=== PATIENT | male | born 1975 | race American Indian/Alaskan Native ===

== ENCOUNTER 2016-09-11 05:01 | Emergency (ER) | payer OTHER ==
[2016-09-11] MEDS ORDERED: TORADOL ONE (05:21)
[2016-09-11] MEDS ORDERED: NACL 0.9% 1000 ML 1,000 ML ONE (05:23)
[2016-09-11] MEDS ORDERED: MORPHINE ONE (05:32)
[2016-09-11] MEDS ORDERED: MORPHINE IV ONE (07:18)
[2016-09-11] MEDS ORDERED: ZOFRAN IV ONE (07:18)
[2016-09-11] MEDS ORDERED: NACL 0.9% 1000 ML 1,000 ML IV ONE (07:18)
--- NOTE | 2016-09-11 09:37 | Cat Scan Report ---
CT of the abdomen and pelvis with IV and oral contrast. History: Left lower quadrant pain. Findings: There is a subcentimeter round hypodensity in the posterior right lobe of the liver which is otherwise normal. The spleen, pancreas, and gallbladder are normal. The adrenal glands are unremarkable. There is a 1 cm cyst in the midpole of the left kidney; otherwise there are no renal masses or hydronephrosis. No adenopathy is seen within the retroperitoneum. There are no pelvic masses or abnormal fluid collections. There are no mesenteric inflammatory changes. There is no radiographic evidence of appendicitis. Impression: Unremarkable study except for small hepatic and left renal cyst.
--- NOTE | 2016-09-11 10:21 | Emergency Department Report ---
ED Abdominal Pain HPI - General Chief Complaint: Abdominal Pain Time Seen by Provider: 09/11/16 07:15 Source: patient - History of Present Illness MD Complaint: abdominal pain -: Gradual Location: periumbilical, LLQ Radiation: none Migration to: no migration Severity: mild, moderate Quality: aching Consistency: intermittent Improves With: nothing Worsens With: nothing Context: other (ETOH daily) Associated Symptoms: denies other symptoms - Related Data Previous Rx's Medication Instructions Recorded Last Taken Type Lansoprazole [Prevacid] 15 mg PO BID #30 cap 09/11/16 Unknown Rx traMADol [Ultram] 50 mg PO Q4HR PRN #14 tablet 09/11/16 Unknown Rx Allergies Allergy/AdvReac Type Severity Reaction Status Date / Time No Known Allergies Allergy Unverified 09/11/16 08:26 ED Review of Systems ROS: Stated complaint: Other details as noted in HPI Constitutional: denies: chills, fever Eyes: denies: eye pain, eye discharge, vision change ENT: denies: ear pain, throat pain Respiratory: denies: cough, shortness of breath, wheezing Cardiovascular: denies: chest pain, palpitations Endocrine: no symptoms reported Gastrointestinal: abdominal pain. denies: nausea, vomiting, diarrhea Genitourinary: denies: urgency, dysuria Musculoskeletal: denies: back pain, joint swelling, arthralgia Skin: denies: rash, lesions Neurological: denies: headache, weakness, paresthesias Psychiatric: denies: anxiety, depression Hematological/Lymphatic: denies: easy bleeding, easy bruising ED Past Medical Hx - Past Medical History Previous Medical History?: No - Surgical History Past Surgical History?: No - Social History Smoking Status: Current Every Day Smoker Substance Use Type: Marijuana - Medications Home Medications: Home Medications Medication Instructions Recorded Confirmed Last Taken Type Lansoprazole [Prevacid] 15 mg PO BID #30 cap 09/11/16 Unknown Rx traMADol [Ultram] 50 mg PO Q4HR PRN #14 tablet 09/11/16 Unknown Rx ED Physical Exam - General General appearance: alert, in no apparent distress - Head Head exam: Present: atraumatic, normocephalic - Eye Eye exam: Present: normal appearance. Absent: scleral icterus - ENT ENT exam: Present: normal exam, mucous membranes moist - Neck Neck exam: Present: normal inspection - Respiratory Respiratory exam: Present: normal lung sounds bilaterally. Absent: respiratory distress - Cardiovascular Cardiovascular Exam: Present: regular rate, normal rhythm. Absent: systolic murmur, diastolic murmur, rubs, gallop - GI/Abdominal GI/Abdominal exam: Present: soft, normal bowel sounds. Absent: distended, tenderness, guarding, rebound, rigid - Rectal Rectal exam: Present: deferred - Extremities Exam Extremities exam: Present: normal inspection - Back Exam Back exam: Present: normal inspection - Neurological Exam Neurological exam: Present: alert, oriented X3, CN II-XII intact. Absent: motor sensory deficit - Psychiatric Psychiatric exam: Present: normal affect, normal mood - Skin Skin exam: Present: warm, dry, intact, normal color. Absent: rash ED Course Vital Signs 09/11/16 09/11/16 09/11/16 07:30 07:46 08:28 Pulse Rate 84 Respiratory 16 16 16 Rate Blood Pressure 107/62 [Right] O2 Sat by Pulse 98 98 Oximetry - Reevaluation(s) Reevaluation #1: Patient reexamination was resting comfortably. His abdomen is benign. His vital signs are stable. He is appropriate for outpatient management. He presently thinks that his presentation is due to excessive alcohol. We discussed the possibility of pancreatitis and the importance of refraining from alcohol. He is given return criteria. He is discharged in stable condition. 09/11/16 10:44 ED Medical Decision Making - Lab Data Lipase was mildly elevated. Other labs nonsignificant. Critical care attestation.: If time is entered above; I have spent that time in minutes in the direct care of this critically ill patient, excluding procedure time. ED Disposition Clinical Impression: Pancreatitis Qualifiers: Chronicity: acute Pancreatitis type: alcohol induced Acute pancreatitis complication: unspecified Qualified Code(s): K85.20 - Alcohol induced acute pancreatitis without necrosis or infection Disposition: DISCHARGED TO HOME OR SELFCARE Is pt being admited?: No Does the pt Need Aspirin: No Condition: Stable Instructions: Pancreatitis (ED) Additional Instructions: Alcohol abstinence is recommended. Consult with GI doctor. I've given you referrals to a GI group as well as primary care provider. Rx as directed. Return any significant vomiting pain or acute change. Prescriptions: Lansoprazole [Prevacid] 15 mg PO BID #30 cap traMADol [Ultram] 50 mg PO Q4HR PRN #14 tablet PRN Reason: Pain Referrals: PRIMARY CARE, [Primary Care Provider] - 3-5 Days [facility] [Provider Group] - 2-3 Days [facility] [Provider Group] - 2-3 Days Time of Disposition: 10:46
[2016-09-11 10:24] LABS: Bilirubin,Urine NEG (Negative); Blood,Urine NEG (Negative); Ketones,Urine TR mg/dL (Negative); Leukocyte Esterase,Urine NEG (Negative); Mucus,Urine FEW /HPF; Nitrite,Urine NEG (Negative); Protein,Urine <15 mg/dL mg/dL (Negative); RBC,Urine < 1.0 /HPF (0.0-6.0); Urobilinogen,Urine < 2.0 mg/dL (<2.0)
[2016-09-11 11:14] VITALS: BP 112/74
== END 2016-09-11 10:49 | disposition home or self-care (01) ==
LOC: ED 05:01
DX: K85.20 Alcohol induced acute pancreatitis without necrosis or infection (principal); F17.200 Nicotine dependence, unspecified, uncomplicated
CPT/HCPCS: 74177; 81001; 96361; 96374; 96375; 99284; J1885; J2270; J2405; J7030; Q9967